=== PATIENT | male | born 1970 ===

== ENCOUNTER 2025-05-28 12:57 | Inpatient (IN) | payer MEDICAID ==
[~2025-05-28] VITALS: Ht 187.9 cm; Wt 93.0 kg
[2025-05-28] MEDS ORDERED: Water, Sterile 10 ML VIAL IM SCH (22:05)
[2025-05-28] MEDS ORDERED: hydrOXYzine hydrochloride 50 MG/ML VIAL IM PRN (22:10)
[2025-05-28] MEDS ORDERED: ACETAMINOPHEN 325 MG TAB PO PRN (22:15)
[2025-05-28] MEDS ORDERED: MG-AL HYDROXIDE/SIMETICONE 30 ML UDC PO PRN (22:15)
[2025-05-28] MEDS ORDERED: Water, Sterile 10 ML VIAL IM PRN (22:45)
[2025-05-28] MEDS ORDERED: DEXTROSE 50% 25 GM/50 ML VIAL IV PRN (23:30)
[2025-05-29 00:37] LABS: BILIRUBIN Negative (Negative); BLOOD Negative (Negative); CLARITY Clear (Clear); COLOR Yellow (Yellow); KETONE 1+ (Negative); LEUKO ESTERASE Negative (Negative); NITRITE Negative (Negative); PH 6.0 (4.5-8.0); SPECIFIC GRAVITY >= 1.030 (1.001-1.030); UROBILINOGEN 0.2 E.U./dl (0.0-1.0)
[2025-05-29 00:58] LABS: WBC 0-2 wbc/hpf (0-5)
[2025-05-29] MEDS ORDERED: Menthol/Zinc Oxide 4 GM THIN T PRN (05:20)
[2025-05-29 06:40] LABS: BASO # 0.0 10*3/uL (0.0-0.1); BASO % 0.5 % (0.0-1.0); EOS # 0.2 10*3/uL (0.0-0.4); EOS % 3.0 % (1.0-4.0); MEAN CELL VOLUME 88.4 fl (80.0-94.0); MEAN CORPUSCULAR HGB 29.5 pg (27.0-31.0); MEAN PLATELET VOLUME 10.6 fl (9.6-12.3); MONO # 0.5 10*3/uL (0.1-1.0); MONO % 8.4 % (3.0-9.0); NEUT # 3.8 10*3/uL (2.3-7.9); NEUT % 61.4 % (47.0-73.0); NUCLEATED RED BLOOD CELL 0.0 % (0.0-0.0); NUCLEATED RED BLOOD CELL 0.0 10*3/uL (0.0-0.0); PLATELET COUNT AUTOMATED 220 10*3/uL (130-400); RED CELL DISTRI WIDTH 12.7 % (0-14.5)
[2025-05-29 07:20] LABS: BUN 12 mg/dl (9-23); LDL CHOLESTEROL 126 mg/dL (9-159); SGPT/ALT 14 U/L (5-49)
[2025-05-29] MEDS ORDERED: INSULIN LISPRO 1 UNIT/0.01 ML SQ SCH (07:30)
[2025-05-29 08:00] VITALS: BP 119/77
[2025-05-29] MEDS ORDERED: Vitamin D 1,000 IU TAB (25 MCG) PO SCH (09:00)
[2025-05-29] MEDS ORDERED: Menthol/Zinc Oxide 4 GM THIN T SCH (09:00)
[2025-05-29] MEDS ORDERED: Thiamine 100 MG TAB PO SCH (09:00)
[2025-05-29] MEDS ORDERED: DIVALPROEX (DR) 500 MG TAB PO SCH (09:00)
[2025-05-29 09:51] VITALS: BP 119/77
[2025-05-29] MEDS ORDERED: NORVASC10 MG PO (13:45)
[2025-05-29] MEDS ORDERED: LIPITOR40 MG PO (13:47)
[2025-05-29] MEDS ORDERED: NATURE'S BLEND100 M2 PO (13:49)
[2025-05-29] MEDS ORDERED: VITAMIN D325 MC1 PO (13:52)
[2025-05-29] MEDS ORDERED: Insulin Glargine, Recombinan 300 UNITS/3 ML PEN SC SCH (21:00)
[2025-05-29] MEDS ORDERED: ATORVASTATIN CALCIUM 40 MG TABLET PO SCH (21:00)
== END 2025-05-29 16:48 | disposition home or self-care (01) | DRG 752 ==
LOC: 3N 12:57
PROVIDERS: ADMIT Psychiatry & Neurology Psychiatry; ATTEND Psychiatry & Neurology Psychiatry
DX: F60.3 Borderline personality disorder (principal); F31.81 Bipolar II disorder; R45.851 Suicidal ideations; F63.81 Intermittent explosive disorder; E78.5 Hyperlipidemia, unspecified; E10.65 Type 1 diabetes mellitus with hyperglycemia